=== PATIENT | female | born 1970 | race Two or more races ===

== ENCOUNTER 2021-09-22 15:09 | Emergency (ER) | payer OTHER ==
[~2021-09-22] VITALS: Ht 157.5 cm; Wt 56.7 kg
[2021-09-22] MEDS ORDERED: MOLNUPIRAVIR (200 MG PO (19:25)
== END 2021-09-22 20:00 | disposition home or self-care (01) ==
LOC: ER 15:09
DX: U07.1 COVID-19 (principal)